=== PATIENT | male | born 1980 | race Caucasian/White ===

== ENCOUNTER 2018-09-29 14:13 | Emergency (ER) | payer SELFPAY ==
[~2018-09-29] VITALS: Ht 190.5 cm; Wt 97.7 kg
[2018-09-29 14:17] VITALS: Ht 190.5 cm; Wt 97.7 kg
[2018-09-29] MEDS ORDERED: ULTRAM50 MG PO (15:41)
[2018-09-29] MEDS ORDERED: CLEOCIN HCL300 MG PO (15:41)
[2018-09-29 16:04] VITALS: BP 144/90
== END 2018-09-29 16:10 | disposition home or self-care (01) ==
LOC: D.ER 14:13
DX: K08.89 Other specified disorders of teeth and supporting structures (principal); R68.84 Jaw pain; F17.200 Nicotine dependence, unspecified, uncomplicated

== ENCOUNTER 2019-02-27 20:08 | Emergency (ER) | payer SELFPAY ==
[~2019-02-27] VITALS: Ht 190.5 cm; Wt 100.0 kg
[~2019-02-27 20:08] MED LIST: CLEOCIN HCL300 MG PO; ULTRAM50 MG PO
[2019-02-27 20:19] VITALS: Ht 190.5 cm; Wt 100.0 kg
[2019-02-27] MEDS ORDERED: SKELAXIN800 MG PO (21:19)
[2019-02-27] MEDS ORDERED: TORADOL10 MG PO (21:19)
[2019-02-27 21:32] VITALS: BP 152/95
== END 2019-02-27 21:32 | disposition home or self-care (01) ==
LOC: D.ER 20:08
DX: M26.609 Unspecified temporomandibular joint disorder, unspecified side (principal)

== ENCOUNTER 2019-07-29 18:36 | Emergency (ER) | payer MEDICAID ==
[~2019-07-29] VITALS: Ht 190.5 cm; Wt 100.0 kg
[~2019-07-29 18:36] MED LIST changes: +SKELAXIN800 MG PO; +TORADOL10 MG PO
[2019-07-29 18:40] VITALS: Ht 190.5 cm; Wt 100.0 kg
[2019-07-29 19:16] LABS: BASOPHILS 0.4 % (0-2); EOSINOPHILS 3.1 % (0-7); HEMATOCRIT 43.6 % (42.0-54.0); HEMOGLOBIN 15.1 g/dL (13.5-17.5); IMMATURE GRANULOCYTES 0.5 % (0-5); LYMPHOCYTES 24.8 % (15-50); MCH 32.5 pg (26.0-34.0); MCHC 34.6 g/dL (31.0-37.0); MEAN PLATELET VOLUME 10.2 fL (7.4-10.4); MONOCYTES 8.9 % (2-11); NEUTROPHILS 62.3 % (40-80); PLATELET COUNT 212 10x3/uL (130-400); RBC 4.64 10x6/uL (4.20-6.10); RDW 12.6 % (11.5-14.5)
--- NOTE | 2019-07-29 19:19 | NUR ---
DR BARRIOS NOTIFIED AND REVIEWED PT'S BEHAVIOR AND ASSESSMENT RESULTS. PT IS A LOW RISK PER DR BARRIOS. DR BARRIOS STATED TO GIVE RESOURCES TO PT AT TIME OF DISCHARGE. NO FURHER ORDERS AT THIS TIME. RESOURCES REVIEWED WITH PT AND HE VERBALIZED UNDERSTANDING.
[2019-07-29 19:21] LABS: CARBON DIOXIDE 25.1 mmol/L (21.0-32.0); CREATININE - SERUM 0.7 mg/dL (0.6-1.3); UREA NITROGEN 16 mg/dL (7-18); eGFR NON AFRICAN AMERICAN > 90 mL/min (90-120)
[2019-07-29 19:27] LABS: ALKALINE PHOSPHATASE 92 U/L (46-116); BILIRUBIN - TOTAL 0.51 mg/dL (0.2-1.3)
[2019-07-29 19:31] LABS: ALT (SGPT) 78 U/L (10-68)
--- NOTE | 2019-07-29 19:47 | NUR ---
DR BARRIOS NOTIFIED AND REVIEWED PT'S EVALUATION AND ASSESSMENT RESULTS. PT IS A LOW RISK PER DR BARRIOS. DR BARRIOS STTED TO GIVE RESURCES TO PT AT TIME OF DISCHARGE. NO FURTHER ORERS AT THIS TIME. RESOURCES REVIEWED WITH PT AND SHE BERBALIZED UNDERSTANDING.
[2019-07-29 20:12] LABS: PROTEIN - SERUM 4.2 g/dL (6.4-8.2)
[2019-07-29 20:15] LABS: CALCIUM 6.4 mg/dL (8.5-10.1)
[2019-07-29 20:16] LABS: POTASSIUM - SERUM 3.4 mmol/L (3.5-5.1)
[2019-07-29 20:17] LABS: GLUCOSE 122 mg/dL (74-106)
[2019-07-29 20:18] LABS: CALC OSMOLALITY 243 mosm/kg (275-300)
[2019-07-29 20:19] LABS: ALBUMIN 2.9 g/dL (3.4-5.0); CHLORIDE - SERUM 89 mmol/L (98-107)
[2019-07-29 20:23] LABS: SODIUM 120 mmol/L (136-145)
[2019-07-29 20:56] LABS: MAGNESIUM - SERUM 1.6 mg/dL (1.8-2.4); PHOSPHOROUS 3.2 mg/dL (2.5-4.9)
[2019-07-29] MEDS ORDERED: THERMOTABS 1 GM1 GM PO (20:58)
[2019-07-29 21:22] VITALS: BP 142/88
== END 2019-07-29 21:25 | disposition home or self-care (01) ==
LOC: D.ER 18:36
PROVIDERS: Emergency Medicine; Family Medicine
DX: E74.39 Other disorders of intestinal carbohydrate absorption (principal); E83.51 Hypocalcemia; E87.1 Hypo-osmolality and hyponatremia